=== PATIENT | male | born 1960 | race Caucasian/White ===

== ENCOUNTER → 2023-12-06 | Emergency (ER) | payer OTHER ==
[~2023-12-06] MED LIST: DIPHENHYDRAMINE 50 MG/ML VIAL ONE; EPINEPHRINE 1 MG/ML VIAL ONE; LABETALOL 20 MG/4ML SYRINGE IV ONE; METHYLPREDNISOLONE 125 MG INJ ONE; MORPHINE 4 MG/ML SYR ONE; NA CHLORIDE 0.9% 1,000 ML ONE; ONDANSETRON 4 MG/2 ML VIAL ONE; TENECTEPLASE 50 MG/10 ML VIAL IV ONE
--- NOTE | 2023-12-06 12:49 | RAD REPORT ---
EXAM DESCRIPTION: CT - Ct Stroke Brain Wo Cont - 12/06/2023 12:34 pm CLINICAL HISTORY: STROKE ALERT COMPARISON: No comparisons TECHNIQUE: Noncontrast head CT images were obtained without IV contrast. Multiplanar reformats were generated and reviewed. All CT scans are performed using dose optimization technique as appropriate and may include automated exposure control or mA/KV adjustment according to patient size. FINDINGS: No intracranial hemorrhage, mass, or edema. Midline structures are unremarkable. Normal ventricular caliber for age. Morgan-white matter differentiation is preserved, without evidence of acute infarct. No abnormal extra- axial fluid collections. Mastoid air cells and visualized portions of the paranasal sinuses are clear. No acute bony findings. IMPRESSION: No evidence of an acute intracranial process. The findings were communicated to Fco Lucio on 12/06/2023 at 12:44 hours.
[2023-12-06 12:54] LABS: Absolute Lymphocytes (CBC) 2.1 K/uL (0.7-4.9); Hematocrit 48.5 % (39.6-49.0); MCV 90.9 fL (80-100); MPV 8.5 fL (7.6-11.3); Platelets 331 thou/uL (152-406); RBC Red Blood Cell Count 5.33 M/uL (4.33-5.43)
[2023-12-06 12:58] LABS: Protime INR 1.14
[2023-12-06 13:19] LABS: Bilirubin Direct 0.4 mg/dL (0-0.2); Bilirubin Indirect, Calculated 0.3 mg/dL (0.2-0.8); Bilirubin Total 0.7 mg/dL (0.2-1.0); Potassium 3.6 mEq/L (3.5-5.1); Protein, Total 8.5 g/dL (6.4-8.2); Troponin High Sensitivity 22.2 pg/mL (<58.9)
--- NOTE | 2023-12-06 13:24 | RAD REPORT ---
EXAM DESCRIPTION: Katya Single View12/06/2023 1:05 pm CLINICAL HISTORY: AMS COMPARISON: No comparisons TECHNIQUE: Portable AP view of the chest. FINDINGS: The lungs are clear. No pneumothorax or effusion. The cardiomediastinal contours are unre markable. IMPRESSION: No acute cardiopulmonary process.
--- NOTE | 2023-12-06 14:22 | RAD REPORT ---
EXAM DESCRIPTION: CT - Head angio - 12/06/2023 1:43 pm CLINICAL HISTORY: WEAKNESS COMPARISON: Ct Stroke Brain Wo Cont dated 12/06/2023 TECHNIQUE: Axial CT angiography images of the head was performed with multiplanar and maximum intens ity projection reconstructions. Images performed following intravenous administration of 100mL Isovue 370. All CT scans are performed using dose optimization technique as appropriate and may include automated exposure control or mA/KV adjustment according to patient size. FINDINGS: Motion artifact somewhat limits evaluation. Allowing for this, No evidence of large vessel occlusion. No evidence of aneurysm or dissection flap is detected. No flow-limiting stenosis or vasc ular malformation identified. Antegrade flow is seen in the vertebral arteries. The vertebral arteries are codominant. The visualized dural venous sinuses are grossly patent. Patchy mucosal thickening throughout the in ethmoidal sinuses. IMPRESSION: No evidence of large vessel occlusion or flow-limiting stenosis.
--- NOTE | 2023-12-06 14:32 | RAD REPORT ---
EXAM DESCRIPTION: CT - Neck Angio - 12/06/2023 1:43 pm CLINICAL HISTORY: weakness COMPARISON: No comparisons TECHNIQUE: Axial CT angiography images of the neck was performed with multiplanar and maximum intens ity projection reconstructions. Images performed following intravenous administration of 100mL Isovue 370. All CT scans are performed using dose optimization technique as appropriate and may include automated exposure control or mA/KV adjustment according to patient size. Quantification of carotid stenosis, if any, is performed according to NASCET criteria. FINDINGS: Motion artifact limits evaluation. A left aortic arch is identified with normal three vessel configuration of the great vessels. No significant flow abnormality is seen of the common carotid bilaterally. Dense atherosclerotic calcifications are seen along the carotid bifurcations and proximal ICAs bilate rally. Motion artifact limits evaluation in those regions, however moderate to severe stenoses are peoples spected. Normal flow is seen within both vertebral arteries, although there are short obscured segments of the proximal vertebral arteries given motion and streak artifact especially on the right. Advanced spondylotic cervical spine changes. 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 Vertebral arteries appear patent although short segments of the proximal vessels are obscured by ronny on and dense streak artifact especially on the right. CAROTID STENOSIS REFERENCE USING NASCET CRITERIA: % ICA stenosis = (1 - narrowest ICA diameter/diameter of distal cervical ICA) x 100. Mild - <50% stenosis. Moderate - 50-69% stenosis. Severe - 70-94% stenosis. Near occlusion - 95-99% stenosis. Occluded - 100% stenosis.
[2023-12-06 15:22] LABS: Barbiturates NEGATIVE (NEGATIVE); Benzodiazepines POSITIVE (NEGATIVE); Cocaine NEGATIVE (NEGATIVE); METHAMPHETAM NEGATIVE (NEGATIVE); Methadone NEGATIVE (NEGATIVE); Opiates NEGATIVE (NEGATIVE); Phencyclidine NEGATIVE (NEGATIVE); THC Cannibis NEGATIVE (NEGATIVE)
--- NOTE | 2023-12-06 15:41 | ER ---
Nurse's Notes [facility] Name: Eliecer Mari Age: 63 yrs Sex: Male : 1960 Arrival Date: 12/06/2023 Time: 12:14 Bed 20 Private MD: Diagnosis: Cerebral infarction, unspecified;Weakness;Anaphylactic shock due to adverse effect of correct drug or medicament properly administered, initial encounter-Ruthy Presentation: 12/06 12:43 Chief complaint: EMS states: toned out to [place] for pt altered mental status. EMS and co iw workers deny pt being unresponsive or syncopal episode, reporting "pt staring and not talking." Pt combative with EMS but not ER staff. Coronavirus screen: At this time, the client does not indicate any symptoms associated with coronavirus-19. Ebola Screen: No symptoms or risks identified at this time. Initial Sepsis Screen: Does the patient meet any 2 criteria? No. Patient's initial sepsis screen is negative. Does the patient have a suspected source of infection? No. Patient's initial sepsis screen is negative. Risk Assessment: Do you want to hurt yourself or someone else? Patient reports no desire to harm self or others. Onset of symptoms was December 06, 2023. 12:43 Method Of Arrival: EMS: [facility] iw 12:43 Acuity: JOE 2 iw Triage Assessment: 12:45 General: Appears in no apparent distress. comfortable, Behavior is calm, cooperative, iw appropriate for age. Pain: Denies pain. EENT: No signs and/or symptoms were reported regarding the EENT system. Neuro: Level of Consciousness is awake, alert, obeys commands, Oriented to person, place, time, situation. Cardiovascular: Capillary refill < 3 seconds Patient's skin is warm and dry. Rhythm is sinus rhythm. Respiratory: Airway is patent Respiratory effort is even, unlabored. GI: Abdomen is round non-distended. : No signs and/or symptoms were reported regarding the genitourinary system. Derm: No signs and/or symptoms reported regarding the dermatologic system. Musculoskeletal: No signs and/or symptoms reported regarding the musculoskeletal system. Historical: - Allergies: 12:23 No Known Allergies; ld1 - PMHx: 12:44 Hypercholesterolemia; Hypertensive disorder; TIA; iw - PSHx: 12:44 Heart stent X 2; iw - Immunization history:: Adult Immunizations up to date. - Social history:: Smoking status: Patient denies any tobacco usage or history of. Patient/guardian denies using alcohol. Screenin:47 [facility] ED Fall Risk Assessment (Adult) History of falling in the last 3 months, iw including since admission No falls in past 3 months (0 pts). Abuse screen: Denies threats or abuse. Denies injuries from another. Nutritional screening: No deficits noted. Tuberculosis screening: No symptoms or risk factors identified. 13:00 [place] Swallow Protocol Brief Cognitive Screen What is your name? Normal, Where are you ld1 right now? Normal, What year is it? Normal. Oral Mechanism Examination Facial Symmetry: Normal, Motion: Normal, Lip Closure: Normal, 3 oz Water Swallow Challenge: Pt able to drink all water without stopping, coughing, choking or throat clearing: Yes Result: PASS Notified: Fco Lucio MD. 13:51 VAN Screening: Arm Drift: Minor drift. Visual Disturbance: No visual disturbance noted. ld1 Aphasia: No aphasia noted. Neglect: No neglect noted. Assessment: 12:25 Reassessment: ERP at bedside assessing PT. ld1 12:30 Reassessment: Pt to CT. ld1 12:47 Reassessment: See triage assessment. iw 14:10 Reassessment: Pt C/O left shoulder pain post TNK. Notified ERP. ERP at bedside. Pt has ld1 swelling to lip and tongue at this time. ERP aware and assessing patient. 14:33 Reassessment: No changes from previously documented assessment. Patient states symptoms ld1 have not improved. 14:35 Reassessment: Patient appears in no apparent distress at this time. No changes from ld1 previously documented assessment. Patient states symptoms have not improved. Cardiovascular: Capillary refill < 3 seconds Patient's skin is warm and dry. Rhythm is sinus rhythm. Respiratory: Airway is patent Respiratory effort is even, unlabored. 15:00 Reassessment: Patient appears in no apparent distress at this time. No changes from ld1 previously documented assessment. 16:00 Reassessment: Patient appears in no apparent distress at this time. No changes from ld1 previously documented assessment. Pt c/o feeling dizzy. Notified ERP. See [facility] for orders. Patient states symptoms have not improved. Vital Signs: 12:26 BP 184 / ???; Pulse 105; Resp 18; Temp 98.4(O); Pulse Ox 100% on R/A; Weight 99.79 kg; ld1 Height 5 ft. 11 in. ; Pain 0/10; 12:32 BP 174 / 91; Pulse 97; Resp 17; Pulse Ox 100% on R/A; ld1 12:45 BP 172 / 86; Pulse 100; Resp 18; Pulse Ox 95% ; ld1 12:48 BP 174 / 91; rn 12:49 Weight 96.16 kg; ld1 13:15 BP 188 / 95; Pulse 103; Resp 15; Pulse Ox 98% on R/A; ld1 13:45 BP 182 / 100; Pulse 96; Resp 18; Pulse Ox 99% ; ld1 14:15 BP 170 / 82; Pulse 103; Resp 17; Pulse Ox 95% on R/A; ld1 15:29 BP 147 / 93; Pulse 118; Resp 18; Pulse Ox 95% on R/A; ld1 16:18 BP 169 / 88; Pulse 109; Resp 18; Pulse Ox 95% on R/A; ld1 12:26 Body Mass Index 30.68 (96.16 kg, 180.34 cm) ld1 12:26 Pain Scale: Adult ld1 NIH Stroke Scale Scores: 12:29 NIHSS Score: 2 ld1 12:45 NIHSS Score: 1 iw 13:51 NIHSS Score: 2 ld1 14:35 NIHSS Score: 3 ld1 16:29 NIHSS Score: 3 ld1 ED Course: 12:23 Patient arrived in ED. ld1 12:25 Fco Lucio MD is Attending Physician. rn 12:26 Inserted saline lock: 20 gauge in right antecubital area, using aseptic technique. ld1 Blood collected. 12:36 CT Stroke Brain w/o Contrast In Process Unspecified. EDMS 12:42 Jennifer Pelletier, RN is Primary Nurse. iw 12:44 Triage completed. iw 12:45 Arm band placed on right wrist. iw 12:47 No provider procedures requiring assistance completed. iw 12:47 Patient has correct armband on for positive identification. Placed in gown. Bed in low iw position. Call light in reach. Side rails up X2. site monitor on. Pulse ox on. NIBP on. Door closed. Noise minimized. Warm blanket given. 12:48 Primary Nurse role handed off by Jennifer Pelletier RN ld1 12:48 Yusra aSnon, RN is Primary Nurse. ld1 13:07 Stroke CXR 1 View In Process Unspecified. EDMS 13:[address] In Process Unspecified. EDMS 13:[address] In Process Unspecified. EDMS 16:31 Patient transferred, IV remains in place. ld1 16:31 Provided Education on: transfer needs. ld1 Administered Medications: 12:42 Drug: NS 0.9% IV 1000 ml IV at 1000 ml once Route: IV; Rate: 1000 ml; Site: right iw antecubital; 13:10 Drug: TNK FOR STROKE - Tenecteplase IV 0.25 mg/kg IV at per protocol once; MAX ld1 DOSE 25 mg, IVP over 5 seconds {Co-Signature: iw (Jennifer Pelletier RN).} Route: IV; Rate: per protocol; Site: right antecubital; 13:31 Drug: morphine IVP or IV 2 mg IVP once over 4 mins Route: IVP; Infused Over: 4 mins; ld1 Site: right antecubital; 13:31 Drug: Ondansetron IVP 4 mg IVP once; over 2 minutes Route: IVP; Site: right antecubital;ld1 15:15 CANCELLED (Duplicate Order): [id number] mg IVP once rn 15:28 Drug: MethylPrednisoLONE IVP 125 mg IVP once Route: IVP; Site: right antecubital; ld1 15:28 Drug: EPINEPHrine 1:1000 Sub-Q 1:1,000 0.3 ml Sub-Q once Route: Sub-Q; Site: right ld1 upper arm; 15:28 Drug: diphenhydrAMINE IVP 50 mg IVP once Route: IVP; Site: right antecubital; ld1 16:15 Drug: Labetalol IV 10 mg IV at calculated rate once Route: IV; Rate: calculated rate; ld1 Site: right antecubital; Medication: 12:47 VIS not applicable for this client. iw Outcome: 15:40 ER care complete, transfer ordered by rn 16:31 Transferred by helicopter to [facility], [facility] [place], [place], ld1 16:31 Condition: unchanged 16:31 Instructed on the need for transfer, 16:32 Patient left the ED. ld1 NIH Stroke Scale - NIH Stroke Score Date: 12/06/2023 Time: 12:29 Total Score = 2 10. Dysarthria (speech clarity - read or repeat words) - 0(Normal) 11. Extinction and Inattention (visual/tactile/auditory/spatial/personal) - 0(No abnormality) 1a. Level of Consciousness (LOC) - 0(Alert) 1b. Level of Consciousness (LOC) (Month \\T\\ Age) - 0(Both) 1c. LOC Commands (Open \\T\\ Closes Eyes/Spoon Maker) - 0(Both) 2. Best Gaze (Lateral Gaze Paresis) - 0(Normal) 3. Visual Field Loss - 0(No visual loss) 4. Facial Palsy - 1(Minor Paralysis) 5a. Left Arm: Motor (10-second hold) - 1(Drift) 5b. Right Arm: Motor (10-second hold) - 0(No drift) 6a. Left Leg: Motor (5-second hold - always test supine) - 0(No drift) 6b. Right Leg: Motor (5-second hold - always test supine) - 0(No drift) 7. Limb Ataxia (finger/nose \\T\\ heel/bates - test with eyes open) - 0(Absent) 8. Sensory Loss (pinprick arms/legs/face) - 0(Normal) 9. Best Language: Aphasia (description/naming/reading) - 0(No aphasia) Initials: ld1 NIH Stroke Scale - NIH Stroke Score Date: 12/06/2023 Time: 12:45 Total Score = 1 10. Dysarthria (speech clarity - read or repeat words) - 0(Normal) 11. Extinction and Inattention (visual/tactile/auditory/spatial/personal) - 0(No abnormality) 1a. Level of Consciousness (LOC) - 0(Alert) 1b. Level of Consciousness (LOC) (Month \\T\\ Age) - 0(Both) 1c. LOC Commands (Open \\T\\ Closes Eyes/Spoon Maker) - 0(Both) 2. Best Gaze (Lateral Gaze Paresis) - 0(Normal) 3. Visual Field Loss - 0(No visual loss) 4. Facial Palsy - 1(Minor Paralysis) 5a. Left Arm: Motor (10-second hold) - 0(No drift) 5b. Right Arm: Motor (10-second hold) - 0(No drift) 6a. Left Leg: Motor (5-second hold - always test supine) - 0(No drift) 6b. Right Leg: Motor (5-second hold - always test supine) - 0(No drift) 7. Limb Ataxia (finger/nose \\T\\ heel/bates - test with eyes open) - 0(Absent) 8. Sensory Loss (pinprick arms/legs/face) - 0(Normal) 9. Best Language: Aphasia (description/naming/reading) - 0(No aphasia) Initials: iw NIH Stroke Scale - NIH Stroke Score Date: 12/06/2023 Time: 13:51 Total Score = 2 10. Dysarthria (speech clarity - read or repeat words) - 0(Normal) 11. Extinction and Inattention (visual/tactile/auditory/spatial/personal) - 0(No abnormality) 1a. Level of Consciousness (LOC) - 0(Alert) 1b. Level of Consciousness (LOC) (Month \\T\\ Age) - 0(Both) 1c. LOC Commands (Open \\T\\ Closes Eyes/Spoon Maker) - 0(Both) 2. Best Gaze (Lateral Gaze Paresis) - 0(Normal) 3. Visual Field Loss - 0(No visual loss) 4. Facial Palsy - 1(Minor Paralysis) 5a. Left Arm: Motor (10-second hold) - 0(No drift) 5b. Right Arm: Motor (10-second hold) - 0(No drift) 6a. Left Leg: Motor (5-second hold - always test supine) - 1(Drift) 6b. Right Leg: Motor (5-second hold - always test supine) - 0(No drift) 7. Limb Ataxia (finger/nose \\T\\ heel/bates - test with eyes open) - 0(Absent) 8. Sensory Loss (pinprick arms/legs/face) - 0(Normal) 9. Best Language: Aphasia (description/naming/reading) - 0(No aphasia) Initials: ld1 NIH Stroke Scale - NIH Stroke Score Date: 12/06/2023 Time: 14:35 Total Score = 3 10. Dysarthria (speech clarity - read or repeat words) - 0(Normal) 11. Extinction and Inattention (visual/tactile/auditory/spatial/personal) - 0(No abnormality) 1a. Level of Consciousness (LOC) - 0(Alert) 1b. Level of Consciousness (LOC) (Month \\T\\ Age) - 0(Both) 1c. LOC Commands (Open \\T\\ Closes Eyes/Spoon Maker) - 0(Both) 2. Best Gaze (Lateral Gaze Paresis) - 0(Normal) 3. Visual Field Loss - 0(No visual loss) 4. Facial Palsy - 1(Minor Paralysis) 5a. Left Arm: Motor (10-second hold) - 2(Drift, some effort against gravity) 5b. Right Arm: Motor (10-second hold) - 0(No drift) 6a. Left Leg: Motor (5-second hold - always test supine) - 0(No drift) 6b. Right Leg: Motor (5-second hold - always test supine) - 0(No drift) 7. Limb Ataxia (finger/nose \\T\\ heel/bates - test with eyes open) - 0(Absent) 8. Sensory Loss (pinprick arms/legs/face) - 0(Normal) 9. Best Language: Aphasia (description/naming/reading) - 0(No aphasia) Initials: ld1 NIH Stroke Scale - NIH Stroke Score Date: 12/06/2023 Time: 16:29 Total Score = 3 10. Dysarthria (speech clarity - read or repeat words) - 0(Normal) 11. Extinction and Inattention (visual/tactile/auditory/spatial/personal) - 0(No abnormality) 1a. Level of Consciousness (LOC) - 0(Alert) 1b. Level of Consciousness (LOC) (Month \\T\\ Age) - 0(Both) 1c. LOC Commands (Open \\T\\ Closes Eyes/Spoon Maker) - 0(Both) 2. Best Gaze (Lateral Gaze Paresis) - 0(Normal) 3. Visual Field Loss - 0(No visual loss) 4. Facial Palsy - 1(Minor Paralysis) 5a. Left Arm: Motor (10-second hold) - 2(Drift, some effort against gravity) 5b. Right Arm: Motor (10-second hold) - 0(No drift) 6a. Left Leg: Motor (5-second hold - always test supine) - 0(No drift) 6b. Right Leg: Motor (5-second hold - always test supine) - 0(No drift) 7. Limb Ataxia (finger/nose \\T\\ heel/bates - test with eyes open) - 0(Absent) 8. Sensory Loss (pinprick arms/legs/face) - 0(Normal) 9. Best Language: Aphasia (description/naming/reading) - 0(No aphasia) Initials: ld1 Signatures: Dispatcher [employer] Jennifer Moreland RN RN iw Fco Lucio MD MD rn Sims, Lauren, RN RN ld1 Jennifer Pelletier RN
--- NOTE | 2023-12-06 15:41 | EDPHYS ---
Physician Documentation [facility] Name: Eliecer Mari Age: 63 yrs Sex: Male : 1960 Arrival Date: 12/06/2023 Time: 12:14 Bed 20 Private MD: ED Physician Fco Lucio HPI: 12/06 13:23 This 63 yrs old Male presents to ER via EMS with complaints of Altered Mental Status. rn 13:23 The patient presents with agitation, Weakness, facial droop. rn Historical: - Allergies: 12:23 No Known Allergies; ld1 - PMHx: 12:44 Hypercholesterolemia; Hypertensive disorder; TIA; iw - PSHx: 12:44 Heart stent X 2; iw - Immunization history:: Adult Immunizations up to date. - Social history:: Smoking status: Patient denies any tobacco usage or history of. Patient/guardian denies using alcohol. ROS: 14:35 Constitutional: Negative for fever, chills, and weight loss, Neck: Negative for injury, rn pain, and swelling, Cardiovascular: Negative for chest pain, palpitations, and edema, Respiratory: Negative for shortness of breath, cough, wheezing, and pleuritic chest pain, Abdomen/GI: Negative for abdominal pain, nausea, vomiting, diarrhea, and constipation, MS/Extremity: Negative for injury and deformity, Skin: Negative for injury, rash, and discoloration, Neuro: + left arm weakness Exam: 12:28 Constitutional: This is a well developed, well nourished patient who is awake, alert, rn appears confused Head/Face: Normocephalic, atraumatic. Eyes: Pupils equal round and reactive to light, extra-ocular motions intact. ENT: dry MM Cardiovascular: Tachycardic, regular Respiratory: No increased work of breathing, no retractions or nasal flaring. Neuro: Awake and alert, GCS 15, oriented to person, place, and situation. Left lower facial droop present with forehead sparing. Family here and confirms no slurred speech. motor strength 5/5 in right upper and right lower extremities. 4 out of 5 strength left lower extremity. 3+ out of 5 strength left upper extremity, positive drift and patient has to assist with other arm to elevated. Sensory grossly intact. Vital Signs: 12:26 BP 184 / ???; Pulse 105; Resp 18; Temp 98.4(O); Pulse Ox 100% on R/A; Weight 99.79 kg; ld1 Height 5 ft. 11 in. ; Pain 0/10; 12:32 BP 174 / 91; Pulse 97; Resp 17; Pulse Ox 100% on R/A; ld1 12:45 BP 172 / 86; Pulse 100; Resp 18; Pulse Ox 95% ; ld1 12:48 BP 174 / 91; rn 12:49 Weight 96.16 kg; ld1 13:15 BP 188 / 95; Pulse 103; Resp 15; Pulse Ox 98% on R/A; ld1 13:45 BP 182 / 100; Pulse 96; Resp 18; Pulse Ox 99% ; ld1 14:15 BP 170 / 82; Pulse 103; Resp 17; Pulse Ox 95% on R/A; ld1 15:29 BP 147 / 93; Pulse 118; Resp 18; Pulse Ox 95% on R/A; ld1 16:18 BP 169 / 88; Pulse 109; Resp 18; Pulse Ox 95% on R/A; ld1 12:26 Body Mass Index 30.68 (96.16 kg, 180.34 cm) ld1 12:26 Pain Scale: Adult ld1 NIH Stroke Scale Scores: 12:29 NIHSS Score: 2 ld1 12:45 NIHSS Score: 1 iw 13:51 NIHSS Score: 2 ld1 14:35 NIHSS Score: 3 ld1 16:29 NIHSS Score: 3 ld1 MDM: 12:25 Patient medically screened. rn 12:47 ED course: Consulted with Dr. Carpio, given CT head negative, no seizure activity rn reported by EMS or bystanders, acute and measurable neurological deficits, recommends TNKase.. 14:35 ED course: Called to room, patient with lip and tongue swelling, possibly from oral rn facial trauma, no evidence of allergic reaction or phenomenon. Does have small bruise to left lateral anterior tongue which may be the source of swelling or trauma. Ice applied to tongue and lip given not allergic and more from trauma and TNKase related.. 15:37 Differential Diagnosis: CVA, seizure, TIA. Data reviewed: vital signs, nurses notes, or rn test result(s), EKG, radiologic studies, CT scan, and as a result, I will admit patient. 15:38 Counseling: I had a detailed discussion with the patient and/or guardian regarding the rn historical points, exam findings, and any diagnostic results supporting the discharge/admit diagnosis, lab results, radiology results, the need to transfer to another facility, for higher level of care. Response to treatment: the patient's symptoms have mildly improved after treatment, and as a result, I will admit patient. 15:38 ED course: I personally spent 35 minutes engaged in work directly related to the rn individual patient's care. This does not include any time spent performing procedures. The patient has been deemed critically ill because of cerebral infarction requiring TNKase, then complication of possible anaphylactic reaction to TNKase requiring epinephrine, steroids and Benadryl. Subsequently patient required transfer to higher level of care [facility] given cerebral infarction as well as orofacial swelling.. 12/06 12:27 Order name: Basic Metabolic Panel; Complete Time: 13:20 rn 12/06 12:27 Order name: CBC with Diff; Complete Time: 13: rn 12/06 12:27 Order name: Hepatic Function; Complete Time: 13: rn 12/06 12:27 Order name: High Sensitivity Troponin; Complete Time: 13: rn 12/06 12:27 Order name: Protime (+inr); Complete Time: 13: rn 12/06 12:27 Order name: Ptt, Activated; Complete Time: 13:20 rn 12/06 12:27 Order name: ETOH Level; Complete Time: 13:20 rn 12/06 12:27 Order name: Urine Drug Screen; Complete Time: 15:23 rn 12/06 12:36 Order name: Glucose, Ancillary Testing; Complete Time: 12:40 EDIN 12/06 12:27 Order name: CT Stroke Brain w/o Contrast; Complete Time: 13:20 rn 12/06 12:27 Order name: Stroke CXR 1 View; Complete Time: 14:34 rn 12/06 13:27 Order name: Head Angio CT; Complete Time: 14:34 12/06 13:27 Order name: Neck Angio CT; Complete Time: 14:34 rn 12/06 12:27 Order name: EKG; Complete Time: 12:27 rn 12/06 12:27 Order name: Accucheck; Complete Time: 12:42 12/06 12:27 Order name: Cardiac monitoring; Complete Time: 12:42 12/06 12:27 Order name: EKG - Nurse/Tech; Complete Time: 12:42 rn 12/06 12:27 Order name: IV Saline Lock; Complete Time: 12:42 rn 12/06 12:27 Order name: Labs collected and sent; Complete Time: 12:42 rn 12/06 12:27 Order name: NPO; Complete Time: 12:42 rn 12/06 12:27 Order name: O2 Per Protocol; Complete Time: 12:42 rn 12/06 12:27 Order name: O2 Sat Monitoring; Complete Time: 12:42 rn 12/06 12:27 Order name: Stroke Swallow Screen; Complete Time: 12:42 rn 12/06 14:20 Order name: Ice pack; Complete Time: 14:22 rn Administered Medications: 12:42 Drug: NS 0.9% IV 1000 ml IV at 1000 ml once Route: IV; Rate: 1000 ml; Site: right iw antecubital; 13:10 Drug: TNK FOR STROKE - Tenecteplase IV 0.25 mg/kg IV at per protocol once; MAX ld1 DOSE 25 mg, IVP over 5 seconds {Co-Signature: iw (Jennifer Pelletier RN).} Route: IV; Rate: per protocol; Site: right antecubital; 13:31 Drug: morphine IVP or IV 2 mg IVP once over 4 mins Route: IVP; Infused Over: 4 mins; ld1 Site: right antecubital; 13:31 Drug: Ondansetron IVP 4 mg IVP once; over 2 minutes Route: IVP; Site: right antecubital;ld1 15:15 CANCELLED (Duplicate Order): [id number] mg IVP once rn 15:28 Drug: MethylPrednisoLONE IVP 125 mg IVP once Route: IVP; Site: right antecubital; ld1 15:28 Drug: EPINEPHrine 1:1000 Sub-Q 1:1,000 0.3 ml Sub-Q once Route: Sub-Q; Site: right ld1 upper arm; 15:28 Drug: diphenhydrAMINE IVP 50 mg IVP once Route: IVP; Site: right antecubital; ld1 16:15 Drug: Labetalol IV 10 mg IV at calculated rate once Route: IV; Rate: calculated rate; ld1 Site: right antecubital; Disposition: 15:38 Critical Care:. rn Disposition Summary: 12/06/23 15:40 Transfer Ordered Notes: Transfer Location: [facility] rn Reason: Higher level of care rn Condition: Stable rn Problem: new rn Symptoms: are unchanged rn Accepting Physician: (12/06/23 16:32) ld1 Diagnosis - Cerebral infarction, unspecified rn - Weakness rn - Anaphylactic shock due to adverse effect of correct drug or medicament properly rn administered, initial encounter - TNKase Forms: - Medication Reconciliation Form rn - SBAR form commercial intern time excluding procedures: 15:38 Critical care time: Bedside Care: 35 minutes, Family Intervention: 5 minutes. Total rn time: 40 minutes NIH Stroke Scale - NIH Stroke Score Date: 12/06/2023 Time: 12:29 Total Score = 2 10. Dysarthria (speech clarity - read or repeat words) - 0(Normal) 11. Extinction and Inattention (visual/tactile/auditory/spatial/personal) - 0(No abnormality) 1a. Level of Consciousness (LOC) - 0(Alert) 1b. Level of Consciousness (LOC) (Month \T\ Age) - 0(Both) 1c. LOC Commands (Open \T\ Closes Eyes/Paper Sample Clerk) - 0(Both) 2. Best Gaze (Lateral Gaze Paresis) - 0(Normal) 3. Visual Field Loss - 0(No visual loss) 4. Facial Palsy - 1(Minor Paralysis) 5a. Left Arm: Motor (10-second hold) - 1(Drift) 5b. Right Arm: Motor (10-second hold) - 0(No drift) 6a. Left Leg: Motor (5-second hold - always test supine) - 0(No drift) 6b. Right Leg: Motor (5-second hold - always test supine) - 0(No drift) 7. Limb Ataxia (finger/nose \T\ heel/bates - test with eyes open) - 0(Absent) 8. Sensory Loss (pinprick arms/legs/face) - 0(Normal) 9. Best Language: Aphasia (description/naming/reading) - 0(No aphasia) Initials: ld1 NIH Stroke Scale - NIH Stroke Score Date: 12/06/2023 Time: 12:45 Total Score = 1 10. Dysarthria (speech clarity - read or repeat words) - 0(Normal) 11. Extinction and Inattention (visual/tactile/auditory/spatial/personal) - 0(No abnormality) 1a. Level of Consciousness (LOC) - 0(Alert) 1b. Level of Consciousness (LOC) (Month \T\ Age) - 0(Both) 1c. LOC Commands (Open \T\ Closes Eyes/Paper Sample Clerk) - 0(Both) 2. Best Gaze (Lateral Gaze Paresis) - 0(Normal) 3. Visual Field Loss - 0(No visual loss) 4. Facial Palsy - 1(Minor Paralysis) 5a. Left Arm: Motor (10-second hold) - 0(No drift) 5b. Right Arm: Motor (10-second hold) - 0(No drift) 6a. Left Leg: Motor (5-second hold - always test supine) - 0(No drift) 6b. Right Leg: Motor (5-second hold - always test supine) - 0(No drift) 7. Limb Ataxia (finger/nose \T\ heel/bates - test with eyes open) - 0(Absent) 8. Sensory Loss (pinprick arms/legs/face) - 0(Normal) 9. Best Language: Aphasia (description/naming/reading) - 0(No aphasia) Initials: iw NIH Stroke Scale - NIH Stroke Score Date: 12/06/2023 Time: 13:51 Total Score = 2 10. Dysarthria (speech clarity - read or repeat words) - 0(Normal) 11. Extinction and Inattention (visual/tactile/auditory/spatial/personal) - 0(No abnormality) 1a. Level of Consciousness (LOC) - 0(Alert) 1b. Level of Consciousness (LOC) (Month \T\ Age) - 0(Both) 1c. LOC Commands (Open \T\ Closes Eyes/Paper Sample Clerk) - 0(Both) 2. Best Gaze (Lateral Gaze Paresis) - 0(Normal) 3. Visual Field Loss - 0(No visual loss) 4. Facial Palsy - 1(Minor Paralysis) 5a. Left Arm: Motor (10-second hold) - 0(No drift) 5b. Right Arm: Motor (10-second hold) - 0(No drift) 6a. Left Leg: Motor (5-second hold - always test supine) - 1(Drift) 6b. Right Leg: Motor (5-second hold - always test supine) - 0(No drift) 7. Limb Ataxia (finger/nose \T\ heel/bates - test with eyes open) - 0(Absent) 8. Sensory Loss (pinprick arms/legs/face) - 0(Normal) 9. Best Language: Aphasia (description/naming/reading) - 0(No aphasia) Initials: ld1 NIH Stroke Scale - NIH Stroke Score Date: 12/06/2023 Time: 14:35 Total Score = 3 10. Dysarthria (speech clarity - read or repeat words) - 0(Normal) 11. Extinction and Inattention (visual/tactile/auditory/spatial/personal) - 0(No abnormality) 1a. Level of Consciousness (LOC) - 0(Alert) 1b. Level of Consciousness (LOC) (Month \T\ Age) - 0(Both) 1c. LOC Commands (Open \T\ Closes Eyes/Paper Sample Clerk) - 0(Both) 2. Best Gaze (Lateral Gaze Paresis) - 0(Normal) 3. Visual Field Loss - 0(No visual loss) 4. Facial Palsy - 1(Minor Paralysis) 5a. Left Arm: Motor (10-second hold) - 2(Drift, some effort against gravity) 5b. Right Arm: Motor (10-second hold) - 0(No drift) 6a. Left Leg: Motor (5-second hold - always test supine) - 0(No drift) 6b. Right Leg: Motor (5-second hold - always test supine) - 0(No drift) 7. Limb Ataxia (finger/nose \T\ heel/bates - test with eyes open) - 0(Absent) 8. Sensory Loss (pinprick arms/legs/face) - 0(Normal) 9. Best Language: Aphasia (description/naming/reading) - 0(No aphasia) Initials: ld1 NIH Stroke Scale - NIH Stroke Score Date: 12/06/2023 Time: 16:29 Total Score = 3 10. Dysarthria (speech clarity - read or repeat words) - 0(Normal) 11. Extinction and Inattention (visual/tactile/auditory/spatial/personal) - 0(No abnormality) 1a. Level of Consciousness (LOC) - 0(Alert) 1b. Level of Consciousness (LOC) (Month \T\ Age) - 0(Both) 1c. LOC Commands (Open \T\ Closes Eyes/Paper Sample Clerk) - 0(Both) 2. Best Gaze (Lateral Gaze Paresis) - 0(Normal) 3. Visual Field Loss - 0(No visual loss) 4. Facial Palsy - 1(Minor Paralysis) 5a. Left Arm: Motor (10-second hold) - 2(Drift, some effort against gravity) 5b. Right Arm: Motor (10-second hold) - 0(No drift) 6a. Left Leg: Motor (5-second hold - always test supine) - 0(No drift) 6b. Right Leg: Motor (5-second hold - always test supine) - 0(No drift) 7. Limb Ataxia (finger/nose \T\ heel/bates - test with eyes open) - 0(Absent) 8. Sensory Loss (pinprick arms/legs/face) - 0(Normal) 9. Best Language: Aphasia (description/naming/reading) - 0(No aphasia) Initials: ld1 Signatures: Dispatcher [employer] EDJennifer Lyons RN RN iw Fco Lucio MD MD rn Sims, Lauren, RN RN ld1 Jennifer Pelletier RN Corrections: (The following items were deleted from the chart) 13:23 12:28 Constitutional: This is a well developed, well nourished patient who is rn awake, alert, appears confused Head/Face: Normocephalic, atraumatic. Eyes: Pupils equal round and reactive to light, extra-ocular motions intact. ENT: dry MM Cardiovascular: Tachycardic, regular Respiratory: No increased work of breathing, no retractions or nasal flaring. Neuro: Awake and alert, GCS 15, oriented to person, place, and situation. Left lower facial droop present with forehead sparing. Family here and confirms no slurred speech. motor strength 5/5 in right upper and right lower extremities. 4 out of 5 strength left lower extremity. 3+ out of 5 strength left upper extremity, positive drift and patient has to assist with other arm to elevated. Sensory grossly intact. rn 15:15 15:07 diphenhydrAMINE IVP 25 mg IVP once ordered. rn rn 16:32 15:40 Dr. lozaon ld1
[2023-12-06 16:59] VITALS: TEMP 98.4
[2023-12-06 17:17] VITALS: BP 169/88; O2SAT 95
--- NOTE | 2023-12-10 14:44 | EKG ---
Test Date: 2023-12-06 Test Time: 12:20:08 Judge Clerk: MAYLIN MEASUREMENT RESULTS: Intervals: Rate: 116 UT: 150 QRSD: 146 QT: 354 QTc: 492 [place]: P: 62 UT: 150 QRS: 265 T: 50 INTERPRETIVE STATEMENTS: Sinus tachycardia Right bundle branch block Inferior infarct, age undetermined Anterolateral infarct, age undetermined Abnormal ECG Compared to ECG 03/29/2007 08:10:00 Right bundle-branch block now present Myocardial infarct finding now present Sinus bradycardia no longer present Electronically Signed On 12-10-23 14:32:10 [employer] by Olivier Yates
== END ==
LOC: ER 12:14
DX: I63.9 Cerebral infarction, unspecified (principal); T88.6XXA Anaphylactic reaction due to adverse effect of correct drug or medicament properly administered, initial encounter; T45.615A Adverse effect of thrombolytic drugs, initial encounter; R29.703 NIHSS score 3; I10 Essential (primary) hypertension; Z95.818 Presence of other cardiac implants and grafts
CPT/HCPCS: 93005; 85025; 80048; 36415; 85610; 82947; 80076; 85730; 84484; 80307; 70496; 70498; 70450; 71045; 82077; 96375; Q9967; J3101; J1200; J0171; J2930; J2405; J7030